=== PATIENT | male | born 1950 | race Hispanic/Latino ===

== ENCOUNTER 2017-09-23 00:21 | Emergency (ER) | payer MEDICARE ==
[2017-09-23 01:16] LABS: #Eosinphils 0.2 thou/uL (0.0-0.7); #Lymphocytes 2.9 thou/uL (1.20-3.40); #Monocytes 0.8 thou/uL (0.11-0.59); #Neutrophils 4.3 thou/uL (1.40-6.50); %Eosinophils 2.6 % (0.0-10.0); %Lymphocytes 35.1 % (21.0-51.0); %Monocytes 9.6 % (0.0-10.0); Hematocrit 31.6 % (42.0-52.0); Mean Platelet Volume 7.2 fL (7.4-10.4); Red Blood Cell (RBC) Count 3.05 mill/uL (4.70-6.10); White Blood Cell (WBC) Count 8.1 thou/uL (4.8-10.8)
[2017-09-23 01:32] LABS: ALT (SGPT) 21 U/L (8-55); AST (SGOT) 13 U/L (5-34); Alkaline Phosphatase 227 U/L (40-150); Anion Gap 15 mmol/L (10-20); BUN (Urea Nitrogen) 35 mg/dL (8.4-25.7); Bilirubin, Total 0.3 mg/dL (0.2-1.2); Calc. Creatinine Clearance 0 mL/min (70-130); Calcium 8.9 mg/dL (7.8-10.44); Carbon Dioxide 29 mmol/L (23-31); Chloride 92 mmol/L (98-107); Estimated GFR-MDRD 12; Protein, Total 8.2 g/dL (5.8-8.1)
[2017-09-23] MEDS ORDERED: Insulin Regular 300 UNITS/3 ML VIAL ONE (02:51)
--- NOTE | 2017-09-23 14:53 | CT ---
PRELIMINARY REPORT/[facility]/EMERGENCY AFTER HOURS PROCEDURE: EXAM: CT Head Without Intravenous Contrast CLINICAL HISTORY: 67 years old, male; Injury or trauma; Fall; Initial encounter; Blunt trauma (contusions or hematomas) ; Consciousness not specified; Patient HX: S/P fall TECHNIQUE: Axial computed tomography images of the head/brain without intravenous contrast. COMPARISON: No relevant prior studies available. FINDINGS: A lenticular area of encephalomalacia in the left basal ganglia with adjacent ex-vacuo dilatation of the left lateral ventricle is observed in keeping with prior hemorrhage. Chronic right basal ganglia lacunar infarction noted. Mild white matter disease observed. No hydrocephalus, mass effect, midline shift, intracranial hemorrhage or acute territorial infarct is observed. The calvarium is intact. The paranasal sinuses are grossly clear. IMPRESSION: No intracranial hemorrhage.Please see discussion above. Thank you for allowing us to participate in the care of your patient. Dictated and Authenticated by: Pool Rascon MD 09/23/2017 2:18 AM Central Time ([place] & [place]) FINAL REPORT CT HEAD NONCONTRAST: Date: 09/23/17 INDICATION: Fall, emergency exam. FINDINGS/IMPRESSION: I agree with the preliminary report given by [facility]. No intracranial hemorrhage or mass effect. Scattered areas of bilateral periventricular ischemia as well as bilateral basal ganglia and right ce rebellar hemisphere lacunar infarctions. Findings are not confirmed as regard to time frame and there fore the possibility of recent episodes of ischemia are not excluded. This could be further assessed with dedicated MRI as clinically necessary.
--- NOTE | 2017-09-23 14:56 | CT ---
PRELIMINARY REPORT/[facility]/EMERGENCY AFTER HOURS PROCEDURE: EXAM: CT Cervical Spine Without Intravenous Contrast CLINICAL HISTORY: 67 years old, male; Injury or trauma; Fall; Initial encounter; Blunt trauma (contusions or hematomas) ; Consciousness not specified; Patient HX: S/P fall TECHNIQUE: Axial computed tomography images of the cervical spine without intravenous contrast. COMPARISON: No relevant prior studies available. FINDINGS: Vertebrae: Loss of vertebral body height, presumed degenerative No acute fracture. Discs/spinal canal/neural foramina: No acute findings. No significant spinal canal stenosis. Soft tissues: Unremarkable. Lung apices: Unremarkable as visualized. Right IJ catheter partially visualized IMPRESSION: No definite acute cervical fracture Thank you for allowing us to participate in the care of your patient. Dictated and Authenticated by: Pool Rascon MD 09/23/2017 2:18 AM Central Time ([place] & [place]) FINAL REPORT CT CERVICAL SPINE WITHOUT CONTRAST: Date: 09/23/17 HISTORY: Fall. Post-traumatic pain. COMPARISON: None. TECHNIQUE: Cervical spine CT is performed without contrast. Reformatted images are submitted for interpretation. FINDINGS: This report is in agreement with the preliminary report by [facility]. There is no post-traumatic sequelae. No cervical spine fracture. Straightening of normal cervical lordosis may be due to patient position , muscle spasm, or cervical collar. Current study is not tailored to assess for ligamentous injury. POS: [facility]
== END 2017-09-23 04:18 | disposition home or self-care (01) ==
LOC: ERS 00:21
DX: Z04.3 Encounter for examination and observation following other accident (principal); E11.65 Type 2 diabetes mellitus with hyperglycemia; E11.40 Type 2 diabetes mellitus with diabetic neuropathy, unspecified; I12.0 Hypertensive chronic kidney disease with stage 5 chronic kidney disease or end stage renal disease; E11.22 Type 2 diabetes mellitus with diabetic chronic kidney disease; N18.6 End stage renal disease; E78.5 Hyperlipidemia, unspecified; I25.10 Atherosclerotic heart disease of native coronary artery without angina pectoris; D64.9 Anemia, unspecified; Z86.73 Personal history of transient ischemic attack (TIA), and cerebral infarction without residual deficits; Z79.4 Long term (current) use of insulin; Z99.2 Dependence on renal dialysis; Z79.899 Other long term (current) drug therapy; W01.198A Fall on same level from slipping, tripping and stumbling with subsequent striking against other object, initial encounter
CPT/HCPCS: 36415; 36416; 70450; 72125; 80053; 82010; 85025; J1815